=== PATIENT | female | born 1975 | race Caucasian/White ===

== ENCOUNTER 2018-08-24 11:03 | Emergency (ER) | payer BC ==
[~2018-08-24] VITALS: Ht 165.1 cm; Wt 53.5 kg
[~2018-08-24 11:03] MED LIST: ALPR0.5T PO
[2018-08-24] MEDS ORDERED: IV NORMAL SALINE 1,000ML 1,000 ML IV ONE (11:30)
--- NOTE | 2018-08-24 11:38 | PHYS DOC ---
Past History Past Medical History: STD Additional Past Medical Histor: Anxiety, HSV 2 infection Past Surgical History: Smoking: Non-smoker Alcohol Use: Heavy Drug Use: None Adult General Chief Complaint Chief Complaint: SUICDAL IDEATION HPI HPI 43-year-old female presents with an escort for suicidal ideation and possible attempt. The police were called because the patient threatened to stab herself with a knife. She tells me she has been having custody issues with her son. He also drinks alcohol. The patient herself a few days ago at home due to drinking too much. Her father, who she lives with was unhappy and told her he would kick her out if she doesn't straighten up. She then said she would just kill herself if he did. Today, they were arguing again and the patient held a knife to her chest threatened to stab herself. She made a couple of superficial kaiser on her chest, but did not actually attempt to stab herself. She tells me that she doesn't want to . She does not want to commit suicide. She was acting out because she was angry. She states that she has not taken any pills today, but did take 2 oxycodone yesterday. She has these prescription for Xanax 3 times a day as needed. She denies any new pain or other concerns. She has lucas that were recently placed in her scalp from her fall a few days ago. Review of Systems Review of Systems Constitutional: Denies fever or chills [] Eyes: Denies change in visual acuity, redness, or eye pain [] HENT: Denies nasal congestion or sore throat [] Respiratory: Denies cough or shortness of breath [] Cardiovascular: No additional information not addressed in HPI [] GI: Denies abdominal pain, nausea, vomiting, bloody stools or diarrhea [] : Denies dysuria or hematuria [] Musculoskeletal: Denies back pain or joint pain [] Integument: Denies rash or skin lesions [] Neurologic: Headache. Denies focal weakness or sensory changes [] Endocrine: Denies polyuria or polydipsia [] All other systems were reviewed and found to be within normal limits, except as documented in this note. Current Medications Current Medications Current Medications Medications (Trade) Dose Ordered Sig/Gaby Start Time Stop Time Status Last Admin Dose Admin Sodium Chloride 1,000 ml @ 1,000 mls/hr 1X ONCE 08/24/18 11:30 08/24/18 12:29 Allergies Allergies Allergies Coded Allergies Type Severity Reaction Last Updated Verified No Known Drug Allergies 03/16/15 No Physical Exam Physical Exam Constitutional: Well developed, well nourished, no acute distress, non-toxic appearance. Disheveled, unkept, dried blood in her hair.[] HENT: Normocephalic, atraumatic, bilateral external ears normal, oropharynx moist, no oral exudates, nose normal. [] Eyes: PERRLA, EOMI, conjunctiva normal, no discharge. [] Neck: Normal range of motion, no tenderness, supple, no stridor. [] Cardiovascular:Heart rate regular rhythm, no murmur [] Lungs & Thorax: Bilateral breath sounds clear to auscultation [] Abdomen: Bowel sounds normal, soft, no tenderness, no masses, no pulsatile masses. [] Skin: multiple bruises on her torso, upper and lower extremities.[] Back: No tenderness, no CVA tenderness. [] Extremities: No tenderness, no cyanosis, no clubbing, ROM intact, no edema. [] Neurologic: Alert and oriented X 3, normal motor function, normal sensory function, no focal deficits noted. [] Psychologic: Affect normal, mood normal. [] EKG EKG Sinus rhythm, rate 78, normal axis, no ST elevations or depressions.[] Radiology/Procedures Radiology/Procedures [] Course & Med Decision Making Course & Med Decision Making Pertinent Labs and Imaging studies reviewed. (See chart for details) The patient does have quite a bit of bruising under her body. None of it appears to be in a specific pattern. She tells me that she bruises easily. She denies being abused. She denies feeling unsafe at home. The patient's labs are unremarkable area her urine drug screen is positive for benzos, opiates, and alcohol. This is as expected. She has a prescription for oxycodone and Xanax. Her urinalysis shows UTI. I will treat her with 1 g of Rocephin IV. Behavioral health evaluation is pending. The behavioral health facilities operator believes the patient is safe for discharge. She is supposed to follow up with her already established psychiatrist and strongly consider substance abuse counseling or inpatient treatment. The patient is stable for discharge at this time. I will discharge her on 5 days of Macrobid for her UTI. [] Dragon Disclaimer Dragon Disclaimer This electronic medical record was generated, in whole or in part, using a voice recognition dictation system. Departure Departure: Impression: Primary Impression: Passive suicidal ideations Additional Impressions: Alcohol abuse UTI (urinary tract infection) Disposition: 01 HOME, SELF-CARE Condition: STABLE Referrals: PCP,NO (PCP) Patient Instructions: Alcohol and Drug Addiction, Finding Treatment, Suicidal Feelings, How to Help Yourself, Urinary Tract Infection, Mran-ud-Vigp Scripts Nitrofurantoin Monohyd/M-Cryst (MACROBID 100 MG CAPSULE) 100 Mg Capsule 1 CAP PO BID for UTI, #10 CAP Prov: MARTHA TOLBRET DO 08/24/18 Problem Qualifiers Additional Impressions: UTI (urinary tract infection) Urinary tract infection type: acute cystitis Hematuria presence: without hematuria Qualified Codes: N30.00 - Acute cystitis without hematuria MARTHA TOLBERT DO August 24, 2018 11:38
[2018-08-24 12:05] LABS: BASO % 1 % (0-3); EOS % 0 % (0-3); HEMATOCRIT 34.5 % (36.0-47.0); HEMOGLOBIN 11.6 g/dL (12.0-15.5); LYMPH # 0.9 x10^3/uL (1.0-4.8); LYMPH % 21 % (24-48); MEAN CORPUSCULAR HEMOGLOBIN 32 pg (25-35); MEAN CORPUSCULAR HGB CONC 34 g/dL (31-37); MEAN CORPUSCULAR VOLUME 97 fL (79-100); MONO # 0.4 x10^3/uL (0.0-1.1); MONO % 9 % (0-9); NEUT % 70 % (31-73); PLATELET COUNT 139 x10^3/uL (140-400); RED BLOOD COUNT 3.56 x10^6/uL (3.50-5.40); RED CELL DISTRIBUTION WIDTH 13.5 % (11.5-14.5); WHITE BLOOD COUNT 4.3 x10^3/uL (4.0-11.0)
[2018-08-24 12:19] LABS: AMPHETAMINE/METHAMPHETAMINE NEG (NEG); BARBITURATES NEG (NEG); BENZODIAZEPINES POS (NEG); CANNABINOIDS NEG (NEG); COCAINE NEG (NEG); METHADONE NEG (NEG); OPIATES POS (NEG); PHENCYCLIDINE NEG (NEG)
[2018-08-24 12:30] LABS: BACTERIA,URINE MANY /HPF (0-FEW); BILIRUBIN,URINE SMALL (NEG); CLARITY,URINE CLOUDY; COLOR,URINE AMBER; GLUCOSE,URINE NEG (NEG); NITRITE,URINE POS (NEG); RBC,URINE 0 /HPF (0-2); SQUAMOUS EPITHELIAL CELL,UR OCC /LPF; UROBILINOGEN,URINE 0.2 mg/dL (0.2 mg/dL)
[2018-08-24 12:47] LABS: ALBUMIN 3.5 g/dL (3.4-5.0); CALCIUM 8.9 mg/dL (8.5-10.1); CREATININE 0.6 mg/dL (0.6-1.0); GFR 108.1; POTASSIUM 3.6 mmol/L (3.5-5.1); TOTAL BILIRUBIN 0.5 mg/dL (0.2-1.0); TOTAL PROTEIN 6.9 g/dL (6.4-8.2)
[2018-08-24] MEDS ORDERED: IV NORMAL SALINE 50ML 50 ML ONE (13:02)
[2018-08-24] MEDS ORDERED: cefTRIAXone SODIUM 1 GM VIAL ONE (13:02)
[2018-08-24] MEDS ORDERED: NITR100C62 PO (14:52)
[2018-08-24 15:11] VITALS: BP 111/63
--- NOTE | 2018-08-24 15:46 | EKG ---
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
== END 2018-08-24 15:10 | disposition home or self-care (01) ==
LOC: ER 11:03
DX: S60.222A Contusion of left hand, initial encounter (principal); S60.221A Contusion of right hand, initial encounter; S80.12XA Contusion of left lower leg, initial encounter; S80.11XA Contusion of right lower leg, initial encounter; R45.851 Suicidal ideations; N30.00 Acute cystitis without hematuria; F10.20 Alcohol dependence, uncomplicated; Y90.0 Blood alcohol level of less than 20 mg/100 ml; X58.XXXA Exposure to other specified factors, initial encounter; Y93.89 Activity, other specified; Y92.89 Other specified places as the place of occurrence of the external cause; Y99.8 Other external cause status
CPT/HCPCS: 36415; 80053; 80307; 81001; 85025; 87086; 87186; 93005; 96365; 96366; 99285; J0696; J7030

== ENCOUNTER 2019-03-07 22:15 | Emergency (ER) | payer SELFPAY ==
[~2019-03-07 22:15] MED LIST changes: +NITR100C62 PO
[2019-03-07] MEDS ORDERED: LIDOCAINE 1%/EPI 1:100,000 20 ML VIAL. IJ ONE (22:30)
--- NOTE | 2019-03-07 22:42 | PHYS DOC ---
Past History Past Medical History: Anxiety Additional Past Medical Histor: Anxiety, HSV 2 infection Past Surgical History: , Hysterectomy, Oophorectomy Smoking: Non-smoker Alcohol Use: Heavy Drug Use: None Adult General Chief Complaint Chief Complaint: LACERATION/AVULSION HPI HPI Patient is a 43-year-old female who presents to the emergency department for evaluation. She states that she was intoxicated prior to arrival and stumbled and fell, striking her head on a wooden stove, she sustained a laceration on her forehead and on her chin. She does not think she lost consciousness. She denies any pain. She has not had any vomiting, neck pain, numbness, or weakness. She states she does not drink regularly. There are no alleviating or exacerbating factors to her symptoms. She is uncertain of her last tetanus. Review of Systems Review of Systems Constitutional: Denies fever or chills [] Eyes: Denies change in visual acuity, redness, or eye pain [] HENT: Denies nasal congestion or sore throat [] Respiratory: Denies cough or shortness of breath [] Cardiovascular: The patient denies any shortness of breath, chest pain, palpitations, or orthopnea [] GI: Denies abdominal pain, nausea, vomiting, bloody stools or diarrhea [] : Denies dysuria or hematuria [] Musculoskeletal: Denies back pain or joint pain [] Integument: Denies rash or skin lesions [] Neurologic: Denies headache, focal weakness or sensory changes [] Current Medications Current Medications Current Medications Medications (Trade) Dose Ordered Sig/Gayb Start Time Stop Time Status Last Admin Dose Admin Lidocaine/ Epinephrine (Xylocaine 1%-Epi 1:100,000) 20 ml 1X ONCE 03/07/19 22:30 03/07/19 22:31 DC Allergies Allergies Allergies Coded Allergies Type Severity Reaction Last Updated Verified No Known Drug Allergies 08/24/18 No Physical Exam Physical Exam PHYSICAL EXAM: CONSTITUTIONAL: Well developed, well nourished HEAD: normocephalic, there is a laceration on the forehead, there is no surrounding tenderness to palpation, the remainder of the cranium is atraumatic EENT: PERRL, EOMI. Conjunctivae normal color, sclerae non-icteric, nystagmus is present on lateral gaze; moist mucous membranes. There is a laceration on the chin, the remainder of the facial bones are atraumatic. NECK: Supple, non-tender; no meningismus. LUNGS: Lungs CTA, breathing even and unlabored. Normal air movement. HEART: Regular rate and rhythm, no murmur CHEST: No deformity; non-tender ABDOMEN: The abdomen is soft, and non-tender, no masses or bruits. EXTREM: Normal ROM; no deformity, no calf tenderness. Normal pulses palpable in all extremities. There is no pedal edema. SKIN: No rash; no diaphoresis NEURO: Alert; normal speech and cognition; CN's grossly intact; strength grossly intact without focal deficit. BACK: No CVA TTP. EKG EKG [] Radiology/Procedures Radiology/Procedures PROCEDURE: CT HEAD AND CERVICAL SPINE WO Examination: CT head, cervical spine without contrast CT HEAD INDICATION: Fall COMPARISON: 03/16/2015 Exposure: One or more of the following individualized dose reduction techniques were utilized for this examination: 1. Automated exposure control 2. Adjustment of the mA and/or kV according to patient size 3. Use of iterative reconstruction technique TECHNIQUE: 5 mm contiguous axial images were obtained from the skull base to the vertex in both bone and soft tissue algorithm. FINDINGS: No abnormal attenuation within the brain parenchyma. No evidence of acute intracranial hemorrhage. No extra-axial fluid collections. No mass effect or midline shift. Ventricular size is appropriate. Basal cisterns are patent. No fractures identified.Weir-white differentiation is preserved.Globes and orbits are within normal limits. Paranasal sinuses and mastoid air cells are clear. IMPRESSION: No acute intracranial findings. CT CERVICAL SPINE INDICATION: Fall COMPARISON: None Available. Technique: 2.5 mm contiguous axial images were obtained from the skull base through the cervicothoracic junction in both bone and soft tissue algorithm. Additional sagittal and coronal reconstructions were also performed. FINDINGS: Vertebral body height and alignment are maintained. Cervical lordosis is preserved. The lateral masses of C1 are aligned upon C2. No fractures identified. The bony canal is patent throughout. Mild intervertebral disc height loss identified in cervical spine particularly at C5-C6 vertebral level. The paraspinous soft tissues are unremarkable. Visualized intracranial contents are unremarkable. Lung apices are clear. IMPRESSION: 1. No acute fracture cervical spine. Correlate clinically. 2. Mild degenerative changes cervical spine. Course & Med Decision Making Course & Med Decision Making Pertinent Imaging studies reviewed. (See chart for details) []LACERATION REPAIR PROCEDURE NOTE: The 5 centimeter forehead laceration was irrigated copiously with normal saline, anesthetized with 1% lidocaine with epinephrine, prepped with Betadine, and draped with sterile drapes. Sterile technique was used. The wound was closed with # 10 running 5-0 nylon sutures. Good epithelial approximation was obtained. The patient tolerated the procedure well. The 2 cm chin laceration was also irrigated copious with normal saline, anesthetized with 1% lidocaine with epinephrine, prepped with Betadine, and covered with sterile drapes. The wound was closed with 4 interrupted 5-0 nylon sutures. I discussed test results with the patient, the need for outpatient follow-up, return precautions, wound care, and suture removal instructions. Dragon Disclaimer Dragon Disclaimer This electronic medical record was generated, in whole or in part, using a voice recognition dictation system. Departure Departure: Impression: Primary Impression: Facial laceration Additional Impressions: Forehead laceration Closed head injury Alcohol intoxication Disposition: 01 HOME, SELF-CARE Condition: STABLE Patient Instructions: Alcohol Intoxication, Head Injury, Adult, Laceration Care, Adult Additional Instructions: Apply topical antibiotic ointment and a fresh sterile dressing to the wound once daily. Keep wounds clean and dry. Suture removal in 5-7 days. Please contact your primary care provider or return to the emergency department for suture removal. Return to medical care for further evaluation and treatment, for any new or worsening symptoms, vomiting, lethargy, or any other concerning symptoms. Problem Qualifiers STEFANIA GUTIERREZ MD Mar 07, 2019 22:42
[2019-03-07] MEDS ORDERED: DIPHTH,PERTUSS(ACELL),TET TOX 0.5 ML DISP.SYRIN. VAX IM ONE ×2 (22:45)
--- NOTE | 2019-03-07 23:17 | RAD ---
Examination: CT head, cervical spine without contrast CT HEAD INDICATION: Fall COMPARISON: 03/16/2015 Exposure: One or more of the following individualized dose reduction techniques were utilized for this examination: 1. Automated exposure control 2. Adjustment of the mA and/or kV according to patient size 3. Use of iterative reconstruction technique TECHNIQUE: 5 mm contiguous axial images were obtained from the skull base to the vertex in both bone and soft tissue algorithm. FINDINGS: No abnormal attenuation within the brain parenchyma. No evidence of acute intracranial hemorrhage. No extra-axial fluid collections. No mass effect or midline shift. Ventricular size is appropriate. Basal cisterns are patent. No fractures identified.Weir-white differentiation is preserved.Globes and orbits are within normal limits. Paranasal sinuses and mastoid air cells are clear. IMPRESSION: No acute intracranial findings. CT CERVICAL SPINE INDICATION: Fall COMPARISON: None Available. Technique: 2.5 mm contiguous axial images were obtained from the skull base through the cervicothoracic junction in both bone and soft tissue algorithm. Additional sagittal and coronal reconstructions were also performed. FINDINGS: Vertebral body height and alignment are maintained. Cervical lordosis is preserved. The lateral masses of C1 are aligned upon C2. No fractures identified. The bony canal is patent throughout. Mild intervertebral disc height loss identified in cervical spine particularly at C5-C6 vertebral level. The paraspinous soft tissues are unremarkable. Visualized intracranial contents are unremarkable. Lung apices are clear. IMPRESSION: 1. No acute fracture cervical spine. Correlate clinically. 2. Mild degenerative changes cervical spine. Electronically signed by: Cuco Chowdhury MD (03/07/2019 11:14 PM) [facility]
[2019-03-07] MEDS ORDERED: NEOMY/BACITR/POLYMYXIN OINT PACKET. TP ONE (23:30)
[2019-03-07 23:52] VITALS: BP 99/60
== END 2019-03-07 23:15 | disposition home or self-care (01) ==
LOC: ER 22:15
DX: S01.81XA Laceration without foreign body of other part of head, initial encounter (principal); F41.9 Anxiety disorder, unspecified; F10.229 Alcohol dependence with intoxication, unspecified; Y90.9 Presence of alcohol in blood, level not specified; W01.198A Fall on same level from slipping, tripping and stumbling with subsequent striking against other object, initial encounter; Y93.89 Activity, other specified; Y92.89 Other specified places as the place of occurrence of the external cause; Y99.8 Other external cause status
CPT/HCPCS: 12014; 70450; 72125; 90471; 90715; 99284-25